=== PATIENT | female | born 1940 | race Caucasian/White ===

== ENCOUNTER 2017-10-22 12:37 | Inpatient (IN) | payer MEDICARE ==
[2017-10-22 13:05] LABS: ADD MAN DIFF? NO
[2017-10-22 13:09] LABS: WHITE BLOOD COUNT 7.6 10^3/ul (4.8-10.8)
[2017-10-22 13:09] LABS: BASOPHILS % 0.5 % (0.0-2.0); EOSINOPHILS # 0.2 10^3/ul (0.0-0.5); EOSINOPHILS % 2.5 % (0.0-7.0); HEMATOCRIT 23.5 % (37.0-47.0); HEMOGLOBIN 7.6 g/dl (12.0-16.0); LYMPHOCYTES # 2.6 10^3/ul (0.8-2.9); LYMPHOCYTES % 34.7 % (15.0-51.0); MEAN CORPUSCULAR HEMOGLOBIN 32.3 pg (29.0-33.0); MEAN CORPUSCULAR HGB CONC 32.3 g/dl (32.0-37.0); MEAN PLATELET VOLUME 9.5 fl (7.4-10.4); MONOCYTE # 0.5 10^3/ul (0.3-0.9); MONOCYTES % 6.9 % (0.0-11.0); NEUTROPHIL # 4.2 10^3/ul (1.6-7.5); NEUTROPHILS % 55.1 % (39.0-77.0); PLATELET COUNT 213 10^3/UL (140-415); RED BLOOD COUNT 2.35 10^6/ul (4.20-5.40); RED CELL DISTRIBUTION WIDTH 16.1 % (11.5-14.5)
[2017-10-22 13:29] LABS: ANION GAP 13 (8-16); BLOOD UREA NITROGEN 25 mg/dl (7-20); CALCIUM 8.9 mg/dl (8.4-10.2); CARBON DIOXIDE 24 mmol/L (21-31); CHLORIDE 107 mmol/L (97-110); CHOLESTEROL 115 mg/dl (100-200); CREATININE 1.08 mg/dl (0.44-1.00); GLUCOSE 134 mg/dl (70-220); HDL CHOLESTEROL 55 mg/dl (33-92); LDL CHOLESTEROL,CALCULATED 40 mg/dl; POTASSIUM 4.9 mmol/L (3.5-5.1); SODIUM 139 mmol/L (135-144); TRIGLYCERIDES 102 mg/dl (0-149)
[2017-10-22 13:40] LABS: INR 0.96; PARTIAL THROMBOPLASTIN TIME 27.7 Sec (25.0-35.0); PROTIME 12.9 Sec (11.9-14.9)
[2017-10-22 13:59] LABS: TROPONIN-I < 0.012 ng/ml (0.00-0.12)
[2017-10-22 14:25] LABS: HEMOGLOBIN A1C 5.4 % (0-5.9)
[2017-10-22 14:33] LABS: ADD UMIC NO; UR ASCORBIC ACID NEGATIVE (NEGATIVE); UR BILIRUBIN (Dip) NEGATIVE (NEGATIVE); UR BLOOD (Dip) NEGATIVE (NEGATIVE); UR CLARITY CLEAR (CLEAR); UR COLOR YELLOW (YELLOW); UR GLUCOSE (Dip) NEGATIVE (NEGATIVE); UR KETONES (Dip) NEGATIVE (NEGATIVE); UR LEUKOCYTE ESTERASE (Dip) NEGATIVE Leu/ul (NEGATIVE); UR NITRITE (Dip) NEGATIVE (NEGATIVE); UR SPECIFIC GRAVITY (Dip) 1.006 (1.003-1.030); UR TOTAL PROTEIN (Dip) NEGATIVE (NEGATIVE); UR UROBILINOGEN (Dip) NEGATIVE (NEGATIVE)
[2017-10-22] MEDS: PANTOPRAZOLE 40 MG INJ IV ×2 (14:54→21:52)
[2017-10-22 15:03] LABS: AMPHETAMINE/METHAMPHETAMINE Negative (NEGATIVE); BARBITURATES Negative (NEGATIVE); BENZODIAZEPINES Negative (NEGATIVE); CANNABINOIDS Negative (NEGATIVE); COCAINE Negative (NEGATIVE); OPIATES Negative (NEGATIVE)
[2017-10-22] MEDS ORDERED: ACETAMINOPHEN 325 MG TAB PO ×2 (15:30→16:00)
[2017-10-22] MEDS ORDERED: ONDANSETRON 4 MG INJ IV ×2 (15:30→16:00)
[2017-10-22 15:31] LABS: IMMEDIATE SPIN CROSSMATCH 1 2
[2017-10-22] MEDS ORDERED: SOD CHLORIDE 0.9% 1,000 ML IV (15:41)
[2017-10-22] MEDS ORDERED: DOCUSATE SODIUM 100 MG CAP PO (16:00)
[2017-10-22] MEDS ORDERED: NACL 0.9% 3 ML SYG IV (16:00)
[2017-10-22] MEDS: DEXTROSE 5%-0.45% NACL 1,000 ML IV (19:14)
[2017-10-22] MEDS ORDERED: EZETIMIBE SIMVASTATIN PO (21:00)
[2017-10-22] MEDS: LACTULOSE 30ML CUP PO (21:52)
[2017-10-23] MEDS: LACTULOSE 30ML CUP PO ×6 (01:01→21:45)
[2017-10-23 05:19] LABS: ADD MAN DIFF? NO
[2017-10-23 05:22] LABS: WHITE BLOOD COUNT 6.8 10^3/ul (4.8-10.8)
[2017-10-23 05:22] LABS: BASOPHIL # 0.1 10^3/ul (0.0-0.1); EOSINOPHILS # 0.3 10^3/ul (0.0-0.5); EOSINOPHILS % 3.8 % (0.0-7.0); HEMATOCRIT 27.8 % (37.0-47.0); HEMOGLOBIN 8.8 g/dl (12.0-16.0); LYMPHOCYTES # 2.8 10^3/ul (0.8-2.9); LYMPHOCYTES % 41.7 % (15.0-51.0); MEAN CORPUSCULAR HEMOGLOBIN 30.7 pg (29.0-33.0); MEAN CORPUSCULAR HGB CONC 31.7 g/dl (32.0-37.0); MEAN CORPUSCULAR VOLUME 96.9 fl (82.0-101.0); MONOCYTE # 0.5 10^3/ul (0.3-0.9); MONOCYTES % 7.2 % (0.0-11.0); NEUTROPHIL # 3.1 10^3/ul (1.6-7.5); PLATELET COUNT 200 10^3/UL (140-415); RED BLOOD COUNT 2.87 10^6/ul (4.20-5.40); RED CELL DISTRIBUTION WIDTH 18.6 % (11.5-14.5)
[2017-10-23 05:46] LABS: ANION GAP 12 (8-16); BLOOD UREA NITROGEN 18 mg/dl (7-20); CARBON DIOXIDE 21 mmol/L (21-31); CHLORIDE 115 mmol/L (97-110); CREATININE 1.04 mg/dl (0.44-1.00); GLUCOSE 149 mg/dl (70-220); MAGNESIUM 2.1 mg/dl (1.7-2.5); PHOSPHORUS 3.9 mg/dl (2.5-4.9); POTASSIUM 4.3 mmol/L (3.5-5.1); SODIUM 144 mmol/L (135-144)
[2017-10-23] MEDS ORDERED: PANTOPRAZOLE 40 MG INJ IV (06:00)
[2017-10-23] MEDS: DEXTROSE 5%-0.45% NACL 1,000 ML IV ×2 (06:06→21:45)
[2017-10-23 06:39] LABS: OCCULT BLOOD STOOL POSITIVE (NEGATIVE)
[2017-10-23] MEDS: SERTRALINE 50 MG TAB PO (09:00)
[2017-10-23] MEDS ORDERED: CYANOCOBALAMIN 1000 MG PO (09:00)
[2017-10-23] MEDS: ATORVASTATIN 10 MG TAB PO (09:23)
[2017-10-23] MEDS: SPIRONOLACTONE 25 MG TAB PO (09:23)
[2017-10-23] MEDS: CYANOCOBALAMIN 500 MCG TAB PO (09:23)
[2017-10-23] MEDS: PANTOPRAZOLE 40 MG INJ IV ×2 (09:24→21:45)
[2017-10-23] MEDS: EZETIMIBE 10 MG TAB PO (11:49)
[2017-10-23] MEDS: OXYBUTYNIN (XL) 5 MG TAB PO (11:49)
[2017-10-24] MEDS: LACTULOSE 30ML CUP PO ×2 (00:32→03:04)
[2017-10-24 05:30] LABS: ADD MAN DIFF? NO
[2017-10-24 05:34] LABS: WHITE BLOOD COUNT 6.6 10^3/ul (4.8-10.8)
[2017-10-24 05:34] LABS: BASOPHIL # 0.1 10^3/ul (0.0-0.1); BASOPHILS % 1.2 % (0.0-2.0); EOSINOPHILS # 0.4 10^3/ul (0.0-0.5); EOSINOPHILS % 6.1 % (0.0-7.0); HEMOGLOBIN 10.2 g/dl (12.0-16.0); LYMPHOCYTES # 2.4 10^3/ul (0.8-2.9); LYMPHOCYTES % 36.7 % (15.0-51.0); MEAN CORPUSCULAR HGB CONC 31.9 g/dl (32.0-37.0); MEAN CORPUSCULAR VOLUME 97.3 fl (82.0-101.0); MEAN PLATELET VOLUME 9.8 fl (7.4-10.4); MONOCYTE # 0.5 10^3/ul (0.3-0.9); MONOCYTES % 7.1 % (0.0-11.0); NEUTROPHIL # 3.2 10^3/ul (1.6-7.5); NEUTROPHILS % 48.4 % (39.0-77.0); PLATELET COUNT 250 10^3/UL (140-415); RED BLOOD COUNT 3.29 10^6/ul (4.20-5.40); RED CELL DISTRIBUTION WIDTH 19.1 % (11.5-14.5)
[2017-10-24 05:46] LABS: ALANINE AMINOTRANSFERASE 33 IU/L (13-69); ALBUMIN/GLOBULIN RATIO 1.11; ALKALINE PHOSPHATASE 80 IU/L (42-121); ANION GAP 15 (8-16); ASPARTATE AMINO TRANSFERASE 33 IU/L (15-46); BILIRUBIN,INDIRECT 0.5 mg/dl (0-1.1); BILIRUBIN,TOTAL 0.5 mg/dl (0.2-1.3); BLOOD UREA NITROGEN 11 mg/dl (7-20); CALCIUM 9.7 mg/dl (8.4-10.2); CARBON DIOXIDE 23 mmol/L (21-31); CHLORIDE 116 mmol/L (97-110); CREATININE 1.02 mg/dl (0.44-1.00); GLUCOSE 103 mg/dl (70-220); PHOSPHORUS 4.2 mg/dl (2.5-4.9); POTASSIUM 3.8 mmol/L (3.5-5.1); SODIUM 150 mmol/L (135-144); TOTAL PROTEIN 7.6 g/dl (6.1-8.1)
[2017-10-24] MEDS: DEXTROSE 5%-0.45% NACL 1,000 ML IV (08:54)
[2017-10-24] MEDS: OXYBUTYNIN (XL) 5 MG TAB PO (08:55)
[2017-10-24] MEDS: PANTOPRAZOLE 40 MG INJ IV (08:55)
[2017-10-24] MEDS ORDERED: PROPOFOL 40 ML (12:26)
[2017-10-24] MEDS ORDERED: LIDOCAINE 2% (SDV) 5 ML INJ (12:26)
[2017-10-24] MEDS ORDERED: DOCUSATE SODIUM 100 MG CAP PO (14:00)
[2017-10-25] MEDS ORDERED: PANTOPRAZOLE (EC) 40 MG TAB PO (06:00)
[2017-10-25] MEDS ORDERED: ATORVASTATIN 10 MG TAB PO (09:00)
[2017-10-25] MEDS ORDERED: CYANOCOBALAMIN 500 MCG TAB PO (09:00)
[2017-10-25] MEDS ORDERED: EZETIMIBE 10 MG TAB PO (09:00)
[2017-10-25] MEDS ORDERED: SERTRALINE 50 MG TAB PO (09:00)
== END 2017-10-24 18:13 | disposition home or self-care (01) | DRG 378 ==
LOC: PP2 10-23 03:08 → E/R 12:37 → MS3 15:03
PROC: 0DB78ZX Excision of Stomach, Pylorus, Via Natural or Artificial Opening Endoscopic, Diagnostic (ICD-10-PCS; principal; 2017-10-24 11:30)
PROC: 0DJD8ZZ Inspection of Lower Intestinal Tract, Via Natural or Artificial Opening Endoscopic (ICD-10-PCS; 2017-10-24 11:30)
PROC: 30233N1 Transfusion of Nonautologous Red Blood Cells into Peripheral Vein, Percutaneous Approach (ICD-10-PCS; 2017-10-24 11:30)
DX: K92.1 Melena (principal); N17.9 Acute kidney failure, unspecified; D64.9 Anemia, unspecified; I10 Essential (primary) hypertension; I25.10 Atherosclerotic heart disease of native coronary artery without angina pectoris; Z95.1 Presence of aortocoronary bypass graft; E78.00 Pure hypercholesterolemia, unspecified; I25.2 Old myocardial infarction; F32.9 Major depressive disorder, single episode, unspecified; E78.5 Hyperlipidemia, unspecified; K57.90 Diverticulosis of intestine, part unspecified, without perforation or abscess without bleeding; K64.4 Residual hemorrhoidal skin tags; K29.70 Gastritis, unspecified, without bleeding
CPT/HCPCS: 36415; 36430; 70450; 71045; 80048; 80053; 80061; 80307; 81003; 82270; 83036; 83735; 84100; 84484; 85025; 85610; 85730; 86850; 86900; 86901; 86920; 88305; 88312; 93005; 96374; 99291-25

== ENCOUNTER 2018-10-27 10:56 | Inpatient (IN) | payer BC, OTHER, MEDICARE ==
[2018-10-27 11:28] LABS: ADD MAN DIFF? NO
[2018-10-27 11:33] LABS: WHITE BLOOD COUNT 7.3 10^3/ul (4.8-10.8)
[2018-10-27 11:33] LABS: ABNORMAL IP MESSAGE 1; BASOPHIL # 0.1 10^3/ul (0.0-0.1); BASOPHILS % 0.8 % (0.0-2.0); EOSINOPHILS # 0.3 10^3/ul (0.0-0.5); HEMATOCRIT 20.9 % (37.0-47.0); LYMPHOCYTES # 2.3 10^3/ul (0.8-2.9); LYMPHOCYTES % 31.3 % (15.0-51.0); MEAN CORPUSCULAR HEMOGLOBIN 31.7 pg (29.0-33.0); MEAN CORPUSCULAR HGB CONC 30.6 g/dl (32.0-37.0); MEAN CORPUSCULAR VOLUME 103.5 fl (82.0-101.0); MEAN PLATELET VOLUME 9.9 fl (7.4-10.4); MONOCYTE # 0.6 10^3/ul (0.3-0.9); MONOCYTES % 8.4 % (0.0-11.0); NEUTROPHILS % 55.1 % (39.0-77.0); NUCLEATED RED BLOOD CELLS% 0.5 /100WBC (0.0-0.0); PLATELET COUNT 200 10^3/UL (140-415); RED BLOOD COUNT 2.02 10^6/ul (4.20-5.40); RED CELL DISTRIBUTION WIDTH 17.6 % (11.5-14.5)
[2018-10-27 11:36] LABS: POSITIVE DIFF @See below
[2018-10-27 11:37] LABS: HEMOGLOBIN 6.4 g/dl (12.0-16.0); PATH REVIEW? YES
[2018-10-27 11:50] LABS: INR 1.04; PROTIME 13.7 Sec (11.9-14.9); PT RATIO 1.1
[2018-10-27 11:57] LABS: ANION GAP 7 (5-13); BLOOD UREA NITROGEN 18 mg/dl (7-20); CALCIUM 8.1 mg/dl (8.4-10.2); CARBON DIOXIDE 23 mmol/L (21-31); CHLORIDE 111 mmol/L (97-110); CREATININE 0.85 mg/dl (0.44-1.00); GLUCOSE 104 mg/dl (70-220); POTASSIUM 4.1 mmol/L (3.5-5.1); SODIUM 141 mmol/L (135-144)
[2018-10-27 12:07] LABS: B-TYPE NATRIURETIC PEPTIDE 707 PG/ML (0-450); TROPONIN-I < 0.012 ng/ml (0.000-0.120)
[2018-10-27 12:51] LABS: ANISOCYTOSIS 1+ (0-0); BAND NEUTROPHILS #M 0.2 10^3/ul (0.0-0.6); BAND NEUTROPHILS % (M) 3 % (0-4); BASOPHIL #M 0.1 10^3/ul (0.0-0.0); BASOPHILS % (M) 2 % (0-2); EOSINOPHILS % (M) 4 % (0-7); LYMPHOCYTES #M 2.7 10^3/ul (0.8-2.9); LYMPHOCYTES % (M) 37 % (15-51); MONOCYTE #M 0.1 10^3/ul (0.3-0.9); MONOCYTES % (M) 2 % (0-11); MYELOCYTES % (M) 1 % (0-0); OVALOCYTES 1+ (0-0); PLATELET ESTIMATE NORMAL; POIKILOCYTOSIS 1+ (0-0); POLYCHROMASIA 1+ (0-0); SEG NEUT #M 3.7 10^3/ul (1.6-7.5); SEGMENTED NEUTROPHILS (M) % 51 % (39-77); SMUDGE%M 21 % (0-0)
[2018-10-27] MEDS: SOD CHLORIDE 0.9% 0 ML IV (13:55)
[2018-10-27 14:21] LABS: IMMEDIATE SPIN CROSSMATCH 1 1
[2018-10-27] MEDS ORDERED: ACETAMINOPHEN 325 MG TAB PO ×2 (14:30→15:30)
[2018-10-27] MEDS ORDERED: ONDANSETRON 4 MG INJ IV ×2 (14:30→15:30)
[2018-10-27] MEDS: D5W-0.45 NACL + KCL 20 MEQ 1,000 ML IV (15:07)
[2018-10-27] MEDS ORDERED: HYDROCODONE/APAP (5/325) TAB PO (15:30)
[2018-10-27] MEDS ORDERED: morphine 2 MG INJ IV (15:30)
[2018-10-27] MEDS ORDERED: NACL 0.9% 3 ML SYG IV (15:30)
[2018-10-27] MEDS: FUROSEMIDE 40 MG INJ IV (17:54)
[2018-10-27 19:59] LABS: CREATINE KINASE 94 IU/L (23-200)
[2018-10-27 20:14] LABS: CK-MB 0.91 ng/ml (0.0-2.4); TROPONIN-I < 0.012 ng/ml (0.000-0.120)
[2018-10-28] MEDS: D5W-0.45 NACL + KCL 20 MEQ 1,000 ML IV ×2 (01:07→08:49)
[2018-10-28 01:15] LABS: CREATINE KINASE 92 IU/L (23-200)
[2018-10-28 01:28] LABS: CK-MB 0.96 ng/ml (0.0-2.4); TROPONIN-I 0.013 ng/ml (0.000-0.120)
[2018-10-28] MEDS: PANTOPRAZOLE 40 MG INJ IV (05:18)
[2018-10-28 05:31] LABS: ADD MAN DIFF? NO
[2018-10-28 05:35] LABS: WHITE BLOOD COUNT 8.9 10^3/ul (4.8-10.8)
[2018-10-28 05:35] LABS: BASOPHIL # 0.1 10^3/ul (0.0-0.1); BASOPHILS % 0.9 % (0.0-2.0); EOSINOPHILS # 0.4 10^3/ul (0.0-0.5); EOSINOPHILS % 4.7 % (0.0-7.0); HEMATOCRIT 27.8 % (37.0-47.0); HEMOGLOBIN 8.9 g/dl (12.0-16.0); LYMPHOCYTES # 2.2 10^3/ul (0.8-2.9); LYMPHOCYTES % 25.3 % (15.0-51.0); MEAN CORPUSCULAR HEMOGLOBIN 31.2 pg (29.0-33.0); MEAN CORPUSCULAR VOLUME 97.5 fl (82.0-101.0); MEAN PLATELET VOLUME 9.9 fl (7.4-10.4); MONOCYTE # 0.7 10^3/ul (0.3-0.9); MONOCYTES % 7.4 % (0.0-11.0); NEUTROPHIL # 5.4 10^3/ul (1.6-7.5); NEUTROPHILS % 61.4 % (39.0-77.0); PLATELET COUNT 239 10^3/UL (140-415); RED BLOOD COUNT 2.85 10^6/ul (4.20-5.40)
[2018-10-28 05:59] LABS: ANION GAP 7 (5-13); BLOOD UREA NITROGEN 17 mg/dl (7-20); CALCIUM 9.1 mg/dl (8.4-10.2); CARBON DIOXIDE 27 mmol/L (21-31); CHLORIDE 109 mmol/L (97-110); CREATININE 0.88 mg/dl (0.44-1.00); GLUCOSE 114 mg/dl (70-220); MAGNESIUM 1.9 mg/dl (1.7-2.5); SODIUM 143 mmol/L (135-144)
[2018-10-28] MEDS: SERTRALINE 50 MG TAB PO (09:08)
[2018-10-28] MEDS: SPIRONOLACTONE 25 MG TAB PO (09:08)
[2018-10-28] MEDS: SOD FERRIC GLUC COMPLX 125 MG in SOD CHLORIDE 0.9% 100 ML IVPB (13:15)
[2018-10-29] MEDS ORDERED: PANTOPRAZOLE (EC) 40 MG TAB PO (06:00)
== END 2018-10-28 15:33 | disposition home or self-care (01) | DRG 812 ==
LOC: E/R 10:56 → MS3 14:19
PROVIDERS: Pediatrics Neonatal-Perinatal Medicine
PROC: 30233N1 Transfusion of Nonautologous Red Blood Cells into Peripheral Vein, Percutaneous Approach (ICD-10-PCS; principal; 2018-10-27)
DX: D62 Acute posthemorrhagic anemia (principal); R07.9 Chest pain, unspecified; Z95.1 Presence of aortocoronary bypass graft; Z86.73 Personal history of transient ischemic attack (TIA), and cerebral infarction without residual deficits; Z79.02 Long term (current) use of antithrombotics/antiplatelets; Z95.5 Presence of coronary angioplasty implant and graft; K29.70 Gastritis, unspecified, without bleeding; R19.5 Other fecal abnormalities; I50.9 Heart failure, unspecified
CPT/HCPCS: 36415; 36430; 71045; 80048; 82550; 82553; 83735; 83880; 84100; 84484; 85025; 85610; 86850; 86900; 86901; 86920; 93005; 99285-25

== ENCOUNTER 2018-12-21 21:16 | Inpatient (IN) | payer BC, OTHER ==
[2018-12-21] MEDS: SOD CHLORIDE 0.9% 1,000 ML IV (22:18)
[2018-12-21] MEDS: METOCLOPRAMIDE 10 MG INJ IV (22:18)
[2018-12-21 23:00] LABS: ADD MAN DIFF? NO
[2018-12-21 23:01] LABS: WHITE BLOOD COUNT 11.9 10^3/ul (4.8-10.8)
[2018-12-21 23:01] LABS: ABNORMAL IP MESSAGE 1; BASOPHIL # 0.1 10^3/ul (0.0-0.1); EOSINOPHILS # 0.4 10^3/ul (0.0-0.5); EOSINOPHILS % 3.7 % (0.0-7.0); HEMATOCRIT 21.4 % (37.0-47.0); LYMPHOCYTES # 2.5 10^3/ul (0.8-2.9); LYMPHOCYTES % 20.7 % (15.0-51.0); MEAN CORPUSCULAR HEMOGLOBIN 27.2 pg (29.0-33.0); MEAN CORPUSCULAR HGB CONC 31.3 g/dl (32.0-37.0); MEAN PLATELET VOLUME 10.2 fl (7.4-10.4); MONOCYTE # 0.7 10^3/ul (0.3-0.9); MONOCYTES % 5.5 % (0.0-11.0); NEUTROPHIL # 8.2 10^3/ul (1.6-7.5); NEUTROPHILS % 68.7 % (39.0-77.0); PLATELET COUNT 363 10^3/UL (140-415); RED BLOOD COUNT 2.46 10^6/ul (4.20-5.40); RED CELL DISTRIBUTION WIDTH 15.3 % (11.5-14.5)
[2018-12-21 23:05] LABS: HEMOGLOBIN 6.7 g/dl (12.0-16.0); POSITIVE DIFF @See below
[2018-12-21 23:06] LABS: PATH REVIEW? YES
[2018-12-21 23:12] LABS: ANION GAP 11 (5-13); BLOOD UREA NITROGEN 27 mg/dl (7-20); CALCIUM 9.1 mg/dl (8.4-10.2); CARBON DIOXIDE 22 mmol/L (21-31); CHLORIDE 108 mmol/L (97-110); CREATININE 1.16 mg/dl (0.44-1.00); GLUCOSE 159 mg/dl (70-220); POTASSIUM 4.1 mmol/L (3.5-5.1); SODIUM 141 mmol/L (135-144)
[2018-12-21 23:20] LABS: INR 1.01; PROTIME 13.4 Sec (11.9-14.9)
[2018-12-21 23:23] LABS: TROPONIN-I < 0.012 ng/ml (0.000-0.120)
[2018-12-21] MEDS: SOD CHLORIDE 0.9% 0 ML IV (23:42)
[2018-12-22 00:02] LABS: ADD UMIC YES; UR AMORPHOUS CRYSTAL FEW /HPF (NONE SEEN); UR ASCORBIC ACID NEGATIVE (NEGATIVE); UR BACTERIA MANY /HPF (NONE SEEN); UR BILIRUBIN (Dip) NEGATIVE (NEGATIVE); UR BLOOD (Dip) 1+ mg/dL (NEGATIVE); UR CLARITY SLIGHTLY CLOUDY (CLEAR); UR COLOR YELLOW (YELLOW); UR GLUCOSE (Dip) NEGATIVE (NEGATIVE); UR KETONES (Dip) NEGATIVE (NEGATIVE); UR LEUKOCYTE ESTERASE (Dip) 2+ Leu/ul (NEGATIVE); UR NITRITE (Dip) POSITIVE (NEGATIVE); UR RBC 2 /HPF (0-5); UR SPECIFIC GRAVITY (Dip) 1.011 (1.003-1.030); UR TOTAL PROTEIN (Dip) NEGATIVE (NEGATIVE); UR UROBILINOGEN (Dip) NEGATIVE (NEGATIVE); UR WBC 12 /HPF (0-5)
[2018-12-22] MEDS ORDERED: ONDANSETRON 4 MG INJ IV (00:30)
[2018-12-22] MEDS ORDERED: ACETAMINOPHEN 325 MG TAB PO ×2 (00:30→06:30)
[2018-12-22] MEDS: CEFTRIAXONE 1 GM/50 ML (PMX) 50 ML IVPB (00:58)
[2018-12-22 04:31] LABS: IMMEDIATE SPIN CROSSMATCH 1 2
[2018-12-22] MEDS ORDERED: ALBUTEROL HFA 8 GM INHALER INH (06:30)
[2018-12-22] MEDS ORDERED: NACL 0.9% 3 ML SYG IV (06:30)
[2018-12-22] MEDS: PANTOPRAZOLE 40 MG INJ IV ×2 (06:48→18:28)
[2018-12-22] MEDS: SERTRALINE 50 MG TAB PO (08:50)
[2018-12-22] MEDS: FERROUS SULFATE (EC) 325 MG TAB PO (08:50)
[2018-12-22] MEDS: SPIRONOLACTONE 25 MG TAB PO (08:50)
[2018-12-22] MEDS: FLUTICASONE 0.05% 16 GM NAS SPRAY NASAL ×2 (08:52→20:40)
[2018-12-22] MEDS ORDERED: MIRABEGRON ORAL (09:00)
[2018-12-22] MEDS ORDERED: NA PHOSPHATE/BIPHOS 133 ML ENEMA PR (11:30)
[2018-12-22] MEDS ORDERED: LACTULOSE 30ML CUP PO (12:00)
[2018-12-22] MEDS: LACTULOSE 30ML CUP PO ×4 (13:28→20:40)
[2018-12-22 14:37] LABS: ADD MAN DIFF? NO
[2018-12-22 14:39] LABS: WHITE BLOOD COUNT 8.5 10^3/ul (4.8-10.8)
[2018-12-22 14:39] LABS: BASOPHIL # 0.1 10^3/ul (0.0-0.1); BASOPHILS % 1.1 % (0.0-2.0); EOSINOPHILS # 0.3 10^3/ul (0.0-0.5); EOSINOPHILS % 3.2 % (0.0-7.0); HEMATOCRIT 30.7 % (37.0-47.0); HEMOGLOBIN 9.8 g/dl (12.0-16.0); LYMPHOCYTES # 2.4 10^3/ul (0.8-2.9); MEAN CORPUSCULAR HEMOGLOBIN 27.3 pg (29.0-33.0); MEAN CORPUSCULAR HGB CONC 31.9 g/dl (32.0-37.0); MEAN CORPUSCULAR VOLUME 85.5 fl (82.0-101.0); MEAN PLATELET VOLUME 9.6 fl (7.4-10.4); MONOCYTE # 0.6 10^3/ul (0.3-0.9); MONOCYTES % 6.6 % (0.0-11.0); NEUTROPHIL # 5.2 10^3/ul (1.6-7.5); NEUTROPHILS % 60.7 % (39.0-77.0); PLATELET COUNT 316 10^3/UL (140-415); RED BLOOD COUNT 3.59 10^6/ul (4.20-5.40); RED CELL DISTRIBUTION WIDTH 15.2 % (11.5-14.5)
[2018-12-22 14:56] LABS: ALANINE AMINOTRANSFERASE 21 IU/L (13-69); ALBUMIN 3.8 g/dl (3.3-4.9); ALKALINE PHOSPHATASE 82 IU/L (42-121); ANION GAP 10 (5-13); ASPARTATE AMINO TRANSFERASE 24 IU/L (15-46); BLOOD UREA NITROGEN 19 mg/dl (7-20); CALCIUM 8.8 mg/dl (8.4-10.2); CARBON DIOXIDE 20 mmol/L (21-31); CHLORIDE 113 mmol/L (97-110); GLUCOSE 154 mg/dl (70-220); MAGNESIUM 2.1 mg/dl (1.7-2.5); POTASSIUM 4.3 mmol/L (3.5-5.1); SODIUM 143 mmol/L (135-144); TOTAL PROTEIN 7.6 g/dl (6.1-8.1)
[2018-12-22 18:33] LABS: OCCULT BLOOD STOOL NEGATIVE (NEGATIVE)
[2018-12-22] MEDS ORDERED: EZETIMIBE SIMVASTATIN PO (21:00)
[2018-12-23] MEDS: LACTULOSE 30ML CUP PO (00:50)
[2018-12-23 05:46] LABS: ADD MAN DIFF? NO
[2018-12-23 05:49] LABS: WHITE BLOOD COUNT 8.3 10^3/ul (4.8-10.8)
[2018-12-23 05:49] LABS: BASOPHIL # 0.1 10^3/ul (0.0-0.1); BASOPHILS % 1.3 % (0.0-2.0); EOSINOPHILS # 0.4 10^3/ul (0.0-0.5); EOSINOPHILS % 5.3 % (0.0-7.0); HEMATOCRIT 31.2 % (37.0-47.0); LYMPHOCYTES # 3.1 10^3/ul (0.8-2.9); LYMPHOCYTES % 37.3 % (15.0-51.0); MEAN CORPUSCULAR HEMOGLOBIN 27.2 pg (29.0-33.0); MEAN CORPUSCULAR HGB CONC 32.1 g/dl (32.0-37.0); MEAN CORPUSCULAR VOLUME 84.8 fl (82.0-101.0); MEAN PLATELET VOLUME 9.7 fl (7.4-10.4); MONOCYTE # 0.8 10^3/ul (0.3-0.9); NEUTROPHIL # 3.9 10^3/ul (1.6-7.5); NEUTROPHILS % 46.9 % (39.0-77.0); NUCLEATED RED BLOOD CELLS% 0.2 /100WBC (0.0-0.0); PLATELET COUNT 328 10^3/UL (140-415); RED BLOOD COUNT 3.68 10^6/ul (4.20-5.40); RED CELL DISTRIBUTION WIDTH 15.7 % (11.5-14.5)
[2018-12-23] MEDS: PANTOPRAZOLE 40 MG INJ IV ×2 (06:00→18:12)
[2018-12-23 06:13] LABS: ANION GAP 10 (5-13); BLOOD UREA NITROGEN 18 mg/dl (7-20); CALCIUM 9.6 mg/dl (8.4-10.2); CARBON DIOXIDE 22 mmol/L (21-31); CHLORIDE 113 mmol/L (97-110); CREATININE 1.04 mg/dl (0.44-1.00); GLUCOSE 99 mg/dl (70-220); MAGNESIUM 2.2 mg/dl (1.7-2.5); PHOSPHORUS 3.5 mg/dl (2.5-4.9); POTASSIUM 3.9 mmol/L (3.5-5.1); SODIUM 145 mmol/L (135-144)
[2018-12-23 06:37] LABS: TRIIODOTHYRONINE 0.98 ng/ml (0.97-1.69)
[2018-12-23] MEDS: FERROUS SULFATE (EC) 325 MG TAB PO (09:00)
[2018-12-23] MEDS: SERTRALINE 50 MG TAB PO (09:00)
[2018-12-23] MEDS: FLUTICASONE 0.05% 16 GM NAS SPRAY NASAL ×2 (09:00→20:44)
[2018-12-23] MEDS ORDERED: PROPOFOL 200 MG INJ (14:18)
[2018-12-23] MEDS: ETOMIDATE 20 MG INJ (14:18)
[2018-12-23] MEDS: ONDANSETRON 4 MG INJ IV (22:30)
[2018-12-24] MEDS: PANTOPRAZOLE 40 MG INJ IV (05:35)
[2018-12-24 06:08] LABS: ADD MAN DIFF? NO
[2018-12-24 06:10] LABS: BASOPHIL # 0.1 10^3/ul (0.0-0.1); BASOPHILS % 0.9 % (0.0-2.0); EOSINOPHILS # 0.5 10^3/ul (0.0-0.5); EOSINOPHILS % 4.9 % (0.0-7.0); HEMATOCRIT 31.4 % (37.0-47.0); LYMPHOCYTES # 2.6 10^3/ul (0.8-2.9); LYMPHOCYTES % 25.2 % (15.0-51.0); MEAN CORPUSCULAR HEMOGLOBIN 26.8 pg (29.0-33.0); MEAN CORPUSCULAR HGB CONC 31.8 g/dl (32.0-37.0); MEAN CORPUSCULAR VOLUME 84.2 fl (82.0-101.0); MEAN PLATELET VOLUME 9.7 fl (7.4-10.4); MONOCYTE # 0.8 10^3/ul (0.3-0.9); MONOCYTES % 7.6 % (0.0-11.0); NEUTROPHIL # 6.4 10^3/ul (1.6-7.5); PLATELET COUNT 310 10^3/UL (140-415); RED BLOOD COUNT 3.73 10^6/ul (4.20-5.40); RED CELL DISTRIBUTION WIDTH 15.5 % (11.5-14.5)
[2018-12-24 06:10] LABS: WHITE BLOOD COUNT 10.5 10^3/ul (4.8-10.8)
[2018-12-24 07:18] LABS: PHOSPHORUS 3.9 mg/dl (2.5-4.9)
[2018-12-24 07:22] LABS: ALANINE AMINOTRANSFERASE 15 IU/L (13-69); ALBUMIN 3.6 g/dl (3.3-4.9); ALKALINE PHOSPHATASE 86 IU/L (42-121); ANION GAP 10 (5-13); ASPARTATE AMINO TRANSFERASE 25 IU/L (15-46); BILIRUBIN,INDIRECT 0.5 mg/dl (0-1.1); BILIRUBIN,TOTAL 0.5 mg/dl (0.2-1.3); BLOOD UREA NITROGEN 14 mg/dl (7-20); CALCIUM 8.9 mg/dl (8.4-10.2); CARBON DIOXIDE 21 mmol/L (21-31); CHLORIDE 113 mmol/L (97-110); CREATININE 0.96 mg/dl (0.44-1.00); GLUCOSE 102 mg/dl (70-220); POTASSIUM 3.8 mmol/L (3.5-5.1); SODIUM 144 mmol/L (135-144); TOTAL PROTEIN 7.2 g/dl (6.1-8.1)
[2018-12-24] MEDS: FLUTICASONE 0.05% 16 GM NAS SPRAY NASAL (08:50)
[2018-12-24] MEDS: FERROUS SULFATE (EC) 325 MG TAB PO (08:54)
[2018-12-24] MEDS: SERTRALINE 50 MG TAB PO (08:56)
== END 2018-12-24 18:24 | disposition home or self-care (01) | DRG 379 ==
LOC: E/R 21:16 → PP2 12-22 00:23
PROVIDERS: Pediatrics Neonatal-Perinatal Medicine
PROC: 0W3P8ZZ Control Bleeding in Gastrointestinal Tract, Via Natural or Artificial Opening Endoscopic (ICD-10-PCS; principal; 2018-12-23 09:00)
PROC: 0DJD8ZZ Inspection of Lower Intestinal Tract, Via Natural or Artificial Opening Endoscopic (ICD-10-PCS; 2018-12-23 09:00)
PROC: 30233N1 Transfusion of Nonautologous Red Blood Cells into Peripheral Vein, Percutaneous Approach (ICD-10-PCS; 2018-12-23 13:00)
DX: K31.811 Angiodysplasia of stomach and duodenum with bleeding (principal); I25.10 Atherosclerotic heart disease of native coronary artery without angina pectoris; D64.9 Anemia, unspecified; K64.8 Other hemorrhoids; K64.4 Residual hemorrhoidal skin tags; K57.30 Diverticulosis of large intestine without perforation or abscess without bleeding; K21.0 Gastro-esophageal reflux disease with esophagitis; I10 Essential (primary) hypertension; N28.9 Disorder of kidney and ureter, unspecified; E11.9 Type 2 diabetes mellitus without complications; K59.00 Constipation, unspecified; E78.5 Hyperlipidemia, unspecified; Z86.73 Personal history of transient ischemic attack (TIA), and cerebral infarction without residual deficits; Z95.1 Presence of aortocoronary bypass graft; Z95.5 Presence of coronary angioplasty implant and graft
CPT/HCPCS: 36415; 36430; 70450; 71045; 80048; 80053; 81001; 82270; 83735; 84100; 84443; 84480; 84484; 85025; 85610; 85730; 86850; 86900; 86901; 86920; 93005; 96374; 99285-25